=== PATIENT | male | born 1995 | race African-American/Black ===

== ENCOUNTER 2024-08-04 08:57 | Outpatient (CLI) | payer BC, SELFPAY ==
--- NOTE | ~2024-08-04 | XR_ITS ---
Left Hand Technique: PA, oblique, and lateral views were obtained. Clinical History: Fifth metacarpal fracture Findings: There is transverse, mildly fracture at the very proximal shaft of the fifth metacarpal. No other fracture or dislocation seen.. Joint spaces are preserved. Dorsal soft tissue swelling noted. Impression: Acute, transverse fracture the very proximal shaft of the fifth metacarpal. Dorsal soft tissue swelling. Reviewed, dictated and finalized at location . Impression: Acute, transverse fracture the very proximal shaft of the fifth metacarpal. Dorsal soft tissue swelling.
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
--- OUTSIDE RECORDS SUMMARY | 2024-08-04 09:22 | XMS_ITS | Referral Summary ---
Author Organization [facility] Address [address] [place] [address] Care Team Providers [employer] Reader Name Role Phone No, Physician Primary Care Provider [phone] Encounters Date Type Department Care Team Description 07/31/2024 Telephone [facility] Medical Group Orthopedics and Sports Medicine [address] [facility] [address] [place] [address] Zak Johnston MD 07/31/2024 12:36 AM CDT - 07/31/2024 7:47 AM CDT Emergency [facility] Emergency Department 1 [place] [address] Bubba Clark MD Displaced fracture of base of fifth metacarpal bone, left hand, initial encounter for closed fracture (Primary Dx) Discharge Disposition: Discharge to home or self care from Last 3 Months Allergies No known active allergies Medications cyclobenzaprine [...] 6 (six) hours 12 tablet 5 Active Immunizations Immunization Administration Dates Next Due Tdap [...] on file 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 SN: Report ID: [id number] Reading Location: [id number] Procedure Note Tracy Manzanares MD - 07/31/2024 EXAM DESCRIPTION: CT [...] Tracy Manzanares M.D. SN: SN Report ID: [id number] Reading Location: [id number] Bubba Clark MD IMG CT PROCEDURES Final [...] Richar Olivas M.D. KT: PAUL Report ID: [id number] Reading Location: [id number] Procedure Note Richar Olivas MD - 07/31/2024 [...] Richar Olivas M.D. KT: PAUL Report ID: [id number] Reading Location: [id number] us Bubba Clark MD IMG XR PROCEDURES [...] Richar Olivas M.D. KT: PAUL Report ID: [id number] Reading Location: [id number] Procedure Note Richar Olivas MD - 07/31/2024 [...] Richar Olivas M.D. KT: PAUL Report ID: [id number] Reading Location: [id number] us Bubba Clark MD IMG XR PROCEDURES [...] AM - Electronically signed by Richar Olivas M.D., KT: PAUL Report ID: [id number] Reading Location: [id number] Procedure Note Richar Olivas MD - 07/31/2024 [...] Richar Olivas M.D. KT: PAUL Report ID: [id number] Reading Location: [id number] Bubba Clark MD IMG XR PROCEDURES Final [...] Electronically signed by Richar Olivas M.D. KT: KT Report ID: [id number] Reading Location: [id number] Procedure Note Richar Olivas MD - 07/31/2024 [...] Richar Olivas M.D. KT: PAUL Report ID: [id number] Reading Location: [place] [id number] Bubba Clark MD IMG XR PROCEDURES Final Resul t from Last 3 Months Insurance [employer] ACCESS [employer] ACCESS [facility] Care Teams Tea [employer] Reader Relationship Specialty Start Date End Date No, Physician PCP - General 07/31/24
== END 2024-08-04 08:58 | disposition home or self-care (01) ==
PROVIDERS: Visit Provider Plastic Surgery
DX: S62.327A Displaced fracture of shaft of fifth metacarpal bone, left hand, initial encounter for closed fracture (principal); X58.XXXA Exposure to other specified factors, initial encounter
CPT/HCPCS: 73130

== ENCOUNTER 2024-08-05 13:30 | Outpatient (RCR) | payer BC, SELFPAY ==
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
--- NOTE | 2024-08-05 14:24 | OPREHPOC ---
Outpatient Therapy Plan of Care This is a Multidisciplinary Plan of Care that may contain components documented by all disciplines (PT, OT, and ST.) OT Problem 1 OT Problem #1 Knowledge Deficit OT Goal 1 Goal / Goal Update Patient to be independent with splint wearing schedule. Target Visit 2
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
== END 2024-10-02 16:17 | disposition home or self-care (01) ==
LOC: ANHGOSHOT 13:30
PROVIDERS: Visit Provider Plastic Surgery
DX: S62.307D Unspecified fracture of fifth metacarpal bone, left hand, subsequent encounter for fracture with routine healing (principal)
CPT/HCPCS: 97165; L3806